=== PATIENT | male | born 1985 | race Caucasian/White ===

== ENCOUNTER 2022-05-31 22:48 | Emergency (ER) | payer OTHER ==
[2022-05-31 23:04] VITALS: BP 129/77; PULSE 88; RESP 19; TEMP 98.3; BMI 30.5
== END 2022-06-01 06:33 | disposition home or self-care (01) ==
LOC: JER 22:48
DX: R05.1 Acute cough (principal); R09.81 Nasal congestion
CPT/HCPCS: 0241U-QW; 99283-25